=== PATIENT | female | born 1960 | race Caucasian/White ===

== ENCOUNTER 2018-12-31 17:12 | Observation (INO) ==
[2018-12-31] MEDS ORDERED: 0.9 % Sodium Chloride 1,000 ML IVC ONE ×2 (17:21→18:33)
[2018-12-31] MEDS ORDERED: Ondansetron 4 MG/2 ML VIAL IVP ONE (17:22)
[2018-12-31] MEDS ORDERED: Ketorolac 15 MG/ML VIAL IVP ONE (17:28)
[2018-12-31] MEDS ORDERED: *HR* HYDROmorphone (PF) 1 MG/ML SYRINGE IVP ONE ×2 (17:28→19:47)
[2018-12-31 17:38] LABS: Bilirubin,Urine Negative (Negative); Blood,Urine Large (Negative); Clarity,Urine Cloudy (Clear); Color,Urine Yellow (Yellow); Glucose,Urine (UA) Normal (Normal); Ketones,Urine Negative (Negative); Leukocyte Esterase,Urine Trace (Negative); Nitrite,Urine Negative (Negative); PH,Urine 6.5 pH Units (5.0-8.0); Protein,Urine 30 mg/dL (Neg-Trace); Specific Gravity,Urine 1.019 (1.010-1.025); Urobilinogen,Urine Normal (Normal)
[2018-12-31 17:42] LABS: Bacteria,Urine None Seen per hpf (None-Few); Hyaline Casts,Urine None Seen per lpf (None-Few); RBC,Urine TNTC per hpf (0-3); Squamous Epithelial Cell,Urine Moderate per lpf (None-Few)
[2018-12-31 18:25] LABS: Basophils % 0.3 %; Eosinophils % 0.1 %; Hematocrit 39.9 % (35.3-44.9); Hemoglobin 14.3 g/dL (11.5-15.4); Immature Granulocytes % 0.4 % (0-4); Lymphocytes % 6.6 %; Mean Corpuscular HGB Conc 35.8 g/dL (31.6-35.5); Mean Corpuscular Hemoglobin 30.8 pg (28.0-33.3); Mean Platelet Volume 9.9 fL (9.4-12.4); Monocytes # 0.9 K/mcL (0.0-1.3); Monocytes % 5.6 %; Neutrophils # 13.3 K/mcL (1.6-8.9); Platelet Count 335 K/mcL (140-400); Red Blood Count 4.64 M/mcL (3.82-4.97); White Blood Count 15.3 K/mcL (4.3-11.1)
[2018-12-31] MEDS ORDERED: *HR* Promethazine 25 MG/ML VIAL IVP ONE (18:25)
[2018-12-31 18:29] LABS: BUN/Creatinine Ratio 21 (6-26); Blood Urea Nitrogen 17 mg/dL (8-23); Calcium 9.5 mg/dL (8.6-10.3); Carbon Dioxide 25 mEq/L (23-29); Chloride 97 mEq/L (98-107); Glucose 98 mg/dL (70-105); Osmolality,Calculated 274 (280-300); Potassium 3.8 mEq/L (3.5-5.1); Sodium 131 mEq/L (136-145); eGFR For African Americans > 60 (> 60); eGFR For Non-African Americans > 60 (> 60)
[2018-12-31] MEDS ORDERED: 0.9 % Sodium Chloride Mini Bag 100 ML ONE (18:32)
[2018-12-31] MEDS ORDERED: cefTRIAXone 1,000 MG in Water for inj. (sterile) 10 ML IVP ONE (18:33)
[2018-12-31] MEDS ORDERED: Naloxone 0.4 MG/ML INJ IVP PRN (22:44)
[2018-12-31] MEDS ORDERED: 0.9 % Sodium Chloride 1,000 ML IVC SCH (22:45)
[2018-12-31] MEDS ORDERED: Ketorolac 15 MG/ML VIAL IVP PRN (22:47)
[2018-12-31] MEDS ORDERED: Ondansetron 4 MG/2 ML VIAL IVP PRN (22:50)
[2019-01-01] MEDS ORDERED: *HR* HYDROmorphone (PF) 1 MG/ML SYRINGE IVP PRN (07:23)
[2019-01-01] MEDS ORDERED: *HR* Promethazine 25 MG/ML VIAL IVP PRN (07:23)
[2019-01-01] MEDS ORDERED: Ondansetron 4 MG/2 ML VIAL IVP ONE (07:23)
[2019-01-01] MEDS ORDERED: *HR* OxyCODONE Immed Rel 5 MG TABLET PO PRN (07:23)
[2019-01-01] MEDS ORDERED: *HR* Propofol 200 MG/20 ML VIAL IVP ONE (07:45)
[2019-01-01] MEDS ORDERED: *HR* FentaNYL (PF) 100 MCG/2 ML VIAL ONE (07:45)
[2019-01-01] MEDS ORDERED: Lidocaine -MPF 2% 2 ML VIAL ONE (07:46)
[2019-01-01] MEDS ORDERED: Isovue-300 50ML VIAL ONE (07:48)
[2019-01-01] MEDS ORDERED: Dexamethasone 4 MG/ML VIAL ONE (08:11)
[2019-01-01] MEDS ORDERED: Ondansetron 4 MG/2 ML VIAL ONE (08:11)
[2019-01-01] MEDS ORDERED: EPHEDrine 50 MG/ML VIAL ONE (08:22)
[2019-01-01] MEDS ORDERED: Ketorolac 30 MG/ML VIAL ONE (08:48)
[2019-01-01] MEDS ORDERED: Ketorolac 15 MG/ML VIAL IVP PRN (10:07)
[2019-01-01] MEDS ORDERED: 0.9 % Sodium Chloride 1,000 ML IVC SCH (10:07)
[2019-01-01] MEDS ORDERED: Ondansetron 4 MG/2 ML VIAL IVP PRN (10:07)
[2019-01-01] MEDS ORDERED: Naloxone 0.4 MG/ML INJ IVP PRN (10:07)
[2019-01-01 11:05] VITALS: BP 120/79
[2019-01-01] MEDS ORDERED: cefTRIAXone 1,000 MG in Water for inj. (sterile) 10 ML IVP SCH (19:00)
[2019-01-06 11:32] LABS: Calculi Mass 16 mg
== END 2019-01-01 12:47 | disposition home or self-care (01) ==
LOC: EMEROOARM 17:12 → 3ANU 17:12
PROVIDERS: ADMIT Family Medicine; ATTEND Family Medicine